=== PATIENT | male | born 1965 | race Caucasian/White ===

== ENCOUNTER 2017-10-04 07:14 | Day surgery (SDC) | payer BC ==
[~2017-10-04 07:14] MED LIST: Buffered Lidocaine 0.9% SYRIN* 5 ML/SYR SYRINGE INTRADERM ONE; Sodium Citrate/Citric Acid* 15 ML UDC PO ONE
[2017-10-04] MEDS ORDERED: Buffered Lidocaine 0.9% SYRIN* 5 ML/SYR SYRINGE ONE (07:23)
[2017-10-04] MEDS ORDERED: ceFAZolin 1 GM ADVAN(*) 1 GM ADDV.VIAL IVPB ONE (07:23)
[2017-10-04] MEDS ORDERED: Sodium Citrate/Citric Acid* 15 ML UDC ONE (07:23)
[2017-10-04] MEDS ORDERED: ceFAZolin 2 GM PREMIX (*) 2 GM/50 ML BAG IVPB ONE (07:23)
[2017-10-04] MEDS ORDERED: fentaNYL* 50 MCG/ML 2 ML VIAL (100 MCG VIAL) ONE ×3 (08:37→15:52)
[2017-10-04] MEDS ORDERED: Midazolam* 1 MG/ML 2 ML VIAL (2 MG) ONE (08:37)
[2017-10-04] MEDS ORDERED: ROPIVACAINE 5 MG/ML 30 ML BTL (0.5%) ONE (08:38)
[2017-10-04] MEDS ORDERED: EPINEPHrine AMP 1 MG/ML ONE (08:48)
[2017-10-04] MEDS ORDERED: Bupivacaine 0.25% SDV* 30 ML ONE (08:48)
[2017-10-04] MEDS ORDERED: Bupivacaine 0.5% SDV PF* 30 ML VIAL ONE (09:24)
[2017-10-04] MEDS ORDERED: Lidocaine 2% PF * 5 ML VIAL ONE (09:28)
[2017-10-04] MEDS ORDERED: Cisatracurium* 2 MG/ML MDV 5 ML ONE (10:10)
[2017-10-04] MEDS ORDERED: Propofol* 10 MG/ML 20 ML BTL IV PUSH ONE (10:49)
[2017-10-04] MEDS ORDERED: Neostigmine Methylsulfate* 2 MG/2 ML SYRINGE ONE (13:02)
[2017-10-04] MEDS ORDERED: Glycopyrrolate IV* 0.2 MG/ML 1 ML VIAL ONE (13:02)
[2017-10-04] MEDS ORDERED: Ondansetron INJ* 2 MG/ML VIAL IV PRN (13:04)
[2017-10-04] MEDS ORDERED: Ketorolac INJ* 30 MG/ML 1 ML VIAL IV PRN (13:04)
[2017-10-04] MEDS ORDERED: fentaNYL* 50 MCG/ML 2 ML VIAL (100 MCG VIAL) IV PRN (13:04)
[2017-10-04] MEDS ORDERED: oxyCODONE/Acetamin 5/325 MG* TAB ONE (15:52)
[2017-10-04 16:14] VITALS: BP 149/74
--- NOTE | 2017-10-07 04:42 | OP ---
DATE OF OPERATION: 10/04/17 - [facility] DATE OF : 69 SURGEON: Jose Porras MD. REMOTE CONTROL ASSEMBLER: ROD Soliz. A physician housekeeping assistant was required for the length of the procedure for positioning, instrumentation, retraction. ANESTHESIOLOGIST: Cedrick Tracy MD ANESTHESIA: General anesthesia, interscalene block regional anesthesia. PRE-OP DIAGNOSES: 1. Right shoulder rotator cuff tear, supraspinatus, infraspinatus. 2. Right shoulder possible proximal biceps tear or tendinosis. 3. Right shoulder subacromial impingement. 4. Right shoulder acromioclavicular joint osteoarthritis. POST-OP DIAGNOSES: 1. Right shoulder rotator cuff tendon tear, supraspinatus, infraspinatus. 2. No tear of the proximal biceps and no clear tendinosis, right shoulder. 3. Right shoulder subacromial impingement. 4. Right shoulder acromioclavicular joint osteoarthritis. OPERATIVE PROCEDURE: 1. Right shoulder arthroscopic rotator cuff tendon repair, supraspinatus, infraspinatus, double row. 2. Right shoulder evaluation of biceps. 3. Right shoulder subacromial decompression. 4. Right shoulder distal clavicle resection. 5. Right shoulder limited debridement of rotator cuff interval and significant bursitic tissue subacromially. ANTIBIOTIC: Ancef 3 g IV. IV FLUIDS: 1200 cc crystalloid. COMPLICATIONS: None. SPECIMEN: None. ESTIMATED BLOOD LOSS: Minimal. IMPLANTS: Healix 5.5 anchors, triple loaded x 2. Healix knotless suture anchor 5.5 mm x 1. Healix suture anchors are from [employer]. INDICATIONS FOR PROCEDURE: The patient is a 52-year-old man, right hand dominant, middle school math teacher, with no prior history of right shoulder pain, who sustained a right shoulder injury on 09/04/17. See my history and physical for a full history. The patient had an exam concerning for rotator cuff tendon tear , significant. MRI demonstrated large full thickness supraspinatus and infraspinatus retracted rotator cuff tendon tears with some question of a tear or tendinosis at the proximal biceps tendon and some spurring about the lateral acromion as well as about the AC joint. The patient opted for surgical management. I discussed risks and potential complications of surgery including bleeding, infection, nerve or blood vessel injury, with stiffness, pain and osteoarthritis , hardware failure, rotator cuff tendon repair. Given the retracted nature of the patient's tissues as well as some fatty infiltration of the supraspinatus muscle, I told the patient that I could not guarantee repairability of the rotator cuff tendon intraoperatively. The patient opted for surgical management. DESCRIPTION OF PROCEDURE: Preoperative written consent was signed. Operative extremity was marked in the preoperative holding. The patient and I discussed management of the biceps tendon. We discussed that in clinic as well as in preoperative holding. We decided that with the patient need his biceps treated that we would do a biceps tenodesis rather than a simple biceps release. The patient had an interscalene regional nerve block in preoperative holding. The patient was taken back to the operating room, placed supine on the operating room table. The patient was sedated and intubated. The patient was changed into the lateral decubitus position with the operative shoulder up. Fifteen pounds of traction in the correct position of forward flexion and abduction. Axillary roll. All bony prominences padded. Juarez bag insufflated. ChloraPrep of the surgical shoulder. Draping. Surgical time-out. I marked the surgical anatomy with a pen and then entered the shoulder joint with a spinal needle, 18 gauge and infused 25 cc of normal saline. I made a posterior glenohumeral joint skin incision. I attempted to enter the joint from this position. The entry was a little bit difficult secondary to the patient's large shoulder. I decided a new trajectory and made a second posterior skin incision and entered the joint through the second posterior glenohumeral joint as skin incision. Diagnostic arthroscopy inside the shoulder joint revealed no unstable lesions of the articular cartilage of the glenoid at the humeral head. No clear superior labrum tear visualized. Biceps appeared intact. I visualized the subscapularis with the humeral head posteriorly translated externally and internally rotated. No clear tear. There was clearly a large tear of the supraspinatus and much of the infraspinatus. It was retracted to the level of the glenoid that were medial to the glenoid. I established an anterior glenohumeral joint portal under direct visualization. I entered the probe and probed the superior labrum. There was no clear tear. I took an arthroscopic shaver and debrided some synovitic tissue in the rotator interval. I debrided some frayed labrum tissue, but there is no significant labrum tear. No loose body in the axillary recess. I could clearly visualize up into the subacromial compartment. Removed instruments and arthroscope. I then entered the subacromial space from posterior and anterior. I placed a 7 mm Mitek cannula anteriorly and attached irrigation to it. I encountered synovitic tissue in the subacromial space. I established a lateral subacromial portal under direct visualization and used an arthroscopic shaver to debride significant amounts of bursitic tissue. There was much spurring both at the lateral acromion and of the anteromedial acromion adjacent to the AC joint encountered. There was a large uncovered footprint of supra and infraspinatus. I debrided this with an arthroscopic shaver followed by vapor electrocautery device. I then prepared this tissue for rotator cuff repair by using the arthroscopic airam to freshen it up. I established a posterolateral subacromial portal to visualize through. I established an anterolateral portal as well for instrumentation purposes and that I would likely perform my repair through. I was able to grasp the rotator cuff tendon and bring it lateral and anterior and bring it out to length to the humeral head. I performed a subacromial decompression at this point using an arthroscopic bur from the lateral portal to bring it at least 6 mm of the undersurface of the anterior aspect of the acromion as well as the lateral aspect of the acromion. I next tried to free up the retracted rotator cuff tendons. I did so using a switching stick, both inferior and superior to the rotator cuff tendons, breaking up any adhesions. I then placed a traction stitch in the rotator cuff tendons. This was with #2 Orthocord. I then pulled that stitch out of an accessory portal and then I placed an 8.25 mm plastic cannula from [employer] that I planned on instrumenting through. I next made a superolateral portal and placed an anchor through it. This was a more anterior anchor in the more medial aspect of the cuff footprint, proximally one-third to half of the way from medial to lateral in the footprint of the supra-spinatus. I then used an [employer] suture passer to pass 1 horizontal mattress suture through the supraspinatus tendon. I next tied this stitch. This brought the rotator cuff nicely to bone. I next was able to get rid of my traction stitch as I had brought the rotator cuff tendons out of full length. I next placed a simple stitch in the anterolateral corner of the supraspinatus tendon to bring all of the supraspinatus tissue to bone. I tied several knots. I was forced to use a general surgical knot pusher and unfortunately, the knot pusher cut that suture after I had passed 2 or 3 knots. However, the tissue remained well apposed with that limited number of knots. I next placed an additional horizontal mattress stitch from that first anchor, but did not yet tie it. I next placed a second superolateral skin incision and placed a second anchor through it more posteroinferiorly on the footprint. Using the [employer] device , I passed stitches for 3 more horizontal mattress knots in the supra and infraspinatus tendons. I next tied my stitches. I tied the 3 more posterior horizontal mattress stitches. Then, I went to tie the posterior most of the stitches from the anterior anchor. Unfortunately, that suture would not slide and the suture broke. Therefore, only two stitches were placed from the anterior anchor, 1 horizontal mattress and 1 simple. I probed the rotator cuff repair and there were no holes in it. I moved the humerus and the repair appeared stable. Because of the large size of this tear, the failing of one of my horizontal mattress stitches in the posterior aspect of the supraspinatus, I decided that I definitely wanted some aspect of lateral row fixation. Therefore, I had placed a lateral row anchor, knotless, Gryphon, using 2 sutures from the posterior anchor and 1 from the anterior anchor, from their stitches. This laid down the cuff especially nicely. I reassessed the stability of the rotator cuff repair and it was excellent. I next moved to the AC joints. I debrided some bursitic tissue about it with my vapor electrocautery. There were still present spurring about the clavicular and acromial side. I debrided this with the arthroscopic bur. I then debrided the distal 8 mm of the distal clavicle with the bur. I next removed all instruments and fluids from the subacromial space. Closure of the skin incisions was performed with [id number] stitches using nylon 4- 0 suture. Xeroform, 4x4s, ABDs, foam tape. A cooling unit, UltraSling with abduction pillow. The patient postoperatively was given Percocet as needed for pain control. The patient will start physical therapy the week after surgery. The patient will follow up with me in clinic 10 to 14 days postoperatively for a wound check and removal of stitches. [id number]/[facility] #: [id number] MTDD
== END 2017-10-04 16:34 | disposition home or self-care (01) ==
LOC: OR 07:14
PROVIDERS: ATTEND Orthopaedic Surgery
DX: S46.011A Strain of muscle(s) and tendon(s) of the rotator cuff of right shoulder, initial encounter (principal); W10.9XXA Fall (on) (from) unspecified stairs and steps, initial encounter; Y92.9 Unspecified place or not applicable; M75.41 Impingement syndrome of right shoulder; M19.011 Primary osteoarthritis, right shoulder; G89.18 Other acute postprocedural pain; G47.33 Obstructive sleep apnea (adult) (pediatric)
CPT/HCPCS: A9270-GY; J0171; J0690; J2250; J2704; J2795; J3010